=== PATIENT | female | born 1935 | race Asian ===

== ENCOUNTER 2019-04-15 08:08 | Emergency (ER) | payer MEDICARE, OTHER ==
[~2019-04-15] VITALS: Ht 157.5 cm; Wt 59.0 kg
[~2019-04-15 08:08] MED LIST: ASPI-1169 PO; OLME20TA13 PO; OMEP20CA15 PO
--- NOTE | 2019-04-15 08:08 | NUR ---
BIB [facility] YESTERDAY, C/O LEFT WRIST PAIN AND SACRAL PAIN , pt awake, alert, -sob, nad noted, pt to bed 4, aaox4. pending md long
[2019-04-15] MEDS ORDERED: ACETAMINOPHEN 325 MG TABLET ONE (08:21)
[2019-04-15] MEDS ORDERED: ACETAMINOPHEN 325 MG TABLET PO ONE (08:30)
--- NOTE | 2019-04-15 08:34 | NUR ---
pt to ct
[2019-04-15 10:09] VITALS: BP 133/75
--- NOTE | 2019-04-15 10:09 | NUR ---
Patient discharged to home in stable condition. Written and verbal after care instructions given. Patient verbalizes understanding of instruction.
== END 2019-04-15 10:24 | disposition home or self-care (01) ==
LOC: ER 08:09
DX: S09.8XXA Other specified injuries of head, initial encounter (principal); M25.532 Pain in left wrist; M25.552 Pain in left hip; I10 Essential (primary) hypertension; Z79.82 Long term (current) use of aspirin; Z79.899 Other long term (current) drug therapy; W18.49XA Other slipping, tripping and stumbling without falling, initial encounter; Y93.89 Activity, other specified; Y92.89 Other specified places as the place of occurrence of the external cause; Y99.8 Other external cause status
CPT/HCPCS: 70450-TC; 71045-TC; 73110; 73502

== ENCOUNTER 2022-07-02 11:33 | Emergency (ER) | payer MEDICARE, OTHER ==
[~2022-07-02] VITALS: Ht 167.6 cm; Wt 71.7 kg
--- NOTE | 2022-07-02 11:45 | NUR ---
RECEIVED PT 86 YRS FEMALE CAME FROM DAY CARE CENTED FOR FREQUNTY VOMITING AWAKE AND ALERT ABDOMIN SOFTE NO tender TO TOUCH dr. conroy at bed side sooping with pt
[2022-07-02] MEDS ORDERED: IV NS 0.9% 1,000 ML BAG IV ONE (12:00)
--- NOTE | 2022-07-02 12:00 | NUR ---
blood drow by lab tac at bed side
[2022-07-02 12:32] LABS: BASOPHILS % (AUTO) 0.6 % (0.0-2.0); EOSINOPHILS % (AUTO) 0.4 % (0.0-6.0); HEMATOCRIT 38 % (33-45); HEMOGLOBIN 12.7 g/dL (11.5-14.8); LYMPHOCYTES % (AUTO) 14.1 % (20.0-44.0); MEAN CORPUSCULAR HGB CONC 33 g/dl (31.0-36.0); MEAN CORPUSCULAR VOLUME 100 fL (82-100); MONOCYTES # (AUTO) 0.4 K/uL (0.1-1.30); MONOCYTES % (AUTO) 5.2 % (2.0-12.0); NEUTROPHILS # (AUTO) 5.8 K/uL (1.8-8.9); NEUTROPHILS % (AUTO) 79.7 % (43.0-81.0); PLATELET COUNT (AUTO) 154 K/uL (150-450); RED BLOOD CELL COUNT(AUTO) 3.83 MIL/uL (4.0-5.2); WHITE BLOOD COUNT (AUTO) 7.3 K/uL (4.3-11.0)
[2022-07-02 13:36] LABS: ALANINE AMINOTRANSFERASE 26 U/L (12-78); ALBUMIN 3.8 g/dL (3.4-5.0); ALKALINE PHOSPHATASE 54 U/L (46-116); ASPARTATE AMINOTRANSFERASE 21 U/L (15-37); BILIRUBIN,DIRECT 0.1 mg/dL (0.0-0.2); BILIRUBIN,TOTAL 0.6 mg/dL (0.2-1.0); CALCIUM, SERUM 9.5 mg/dL (8.5-10.1); CARBON DIOXIDE 29 mmol/L (21-32); CHLORIDE 106 mmol/L (98-107); CREATININE 0.8 mg/dL (0.6-1.3); GLUCOSE 98 mg/dL (74-106); LIPASE 126 U/L (73-393); POTASSIUM 3.4 mmol/L (3.5-5.1); SODIUM SERUM 143 mmol/L (136-145); TOTAL PROTEIN, SERUM 6.6 g/dL (6.4-8.2); UREA NITROGEN, BLOOD 30 mg/dL (7-18)
--- NOTE | 2022-07-02 13:51 | NUR ---
Miguel at bed side (RICKY GANDARA AND KRUNAL UNDERWOOD MD
--- NOTE | 2022-07-02 14:45 | NUR ---
DR LEAHY AT BED SIDE SPOOKING WITH MARIBEL
[2022-07-02] MEDS ORDERED: PROCHLORPERAZINE EDISYLATE 10 MG/2 ML VIAL IVP ONE (15:00)
[2022-07-02] MEDS ORDERED: diphenhydrAMINE HCL 50 MG/ML VIAL IV ONE (15:00)
--- NOTE | 2022-07-02 15:30 | NUR ---
TO CT SCAN OF head via kt
--- NOTE | 2022-07-02 16:15 | NUR ---
voding freely UA SENT TO LAB
[2022-07-02] MEDS ORDERED: diphenhydrAMINE HCL 50 MG/ML VIAL ONE (16:21)
[2022-07-02] MEDS ORDERED: PROCHLORPERAZINE EDISYLATE 10 MG/2 ML VIAL ONE (16:22)
[2022-07-02 16:41] LABS: BILIRUBIN,URINE NEGATIVE (NEGATIVE); COLOR,URINE YELLOW (YELLOW); LEUKOCYTE ESTERASE ,URINE 2+ (NEGATIVE); NITRITE, URINE NEGATIVE (NEGATIVE); PH,URINE 6.5 (5.0-8.0); PROTEIN,URINE NEGATIVE (NEGATIVE); UGLUCOSE NEGATIVE (NEGATIVE); UROBILINOGEN,URINE 0.2 EU/dL (0.2)
[2022-07-02 17:00] LABS: BACTERIA,URINE 1+ /HPF (None Seen); RBC,URINE 0-2 /HPF (0-2); WBC,URINE 21-50 /HPF (0-3)
[2022-07-02 17:01] LABS: SQUAMOUS EPITHELIAL CELL,UR 0-2 /HPF (None Seen)
[2022-07-02] MEDS ORDERED: MECL-159 PO (17:30)
[2022-07-02] MEDS ORDERED: CEPH500C2 PO (17:30)
[2022-07-02] MEDS ORDERED: CEFTRIAXONE 1GM BAG (ER ONLY) 1 GM/50 ML PIGGYBACK IV ONE (17:30)
--- NOTE | 2022-07-02 17:40 | NUR ---
ROCEPHIN 1 GM IVBP INFUSED AND STRTED
[2022-07-02] MEDS ORDERED: CEFTRIAXONE 1GM BAG (ER ONLY) 50 ML IV ONE (17:48)
--- NOTE | 2022-07-02 18:00 | NUR ---
DOUGHTER AT BED SIDE
--- NOTE | 2022-07-02 18:10 | NUR ---
COMPLETED ROCEPHIN NO REACTION
--- NOTE | 2022-07-02 18:13 | NUR ---
IV removed. Catheter intact and site benign. Pressure and 4x4 applied to site. No bleeding noted.
--- NOTE | 2022-07-02 18:14 | NUR ---
Patient discharged to home in stable condition. Written and verbal after care instructions given. Patient verbalizes understanding of instruction.
[2022-07-02 19:00] VITALS: BP 160/78
== END 2022-07-02 18:40 | disposition home or self-care (01) ==
LOC: ER 11:48
DX: N39.0 Urinary tract infection, site not specified (principal); R42 Dizziness and giddiness; I10 Essential (primary) hypertension; Z79.899 Other long term (current) drug therapy; Z79.82 Long term (current) use of aspirin
CPT/HCPCS: 99285; 96365; 70450; 71045; 96375; 96361; 93005; 85025; 80048; 87086; 83690; 80076; 83735; 81001; 36415; 84484; J0780; J1200; J7030; J0696